=== PATIENT | female | born 1975 | race Caucasian/White ===

== ENCOUNTER 2016-08-15 02:00 | Inpatient (IN) | payer SELFPAY ==
--- NOTE | ~2016-08-15 | PA ---
Unit #: [id number] #: [id number] Patient: GLADIS HENDERSON [id number] [facility] [address] [place] [address] [id number] I MR#: [id number] NAME: GLADIS HENDERSON ROOM: P171 Age: 41 Sex: F Admission Date: 08/15/2016 : 1975 Date of Assessment: 08/15/2016 Attending Physician: Christine Palacios M.D. Admitting Physician: Christine Palacios M.D. Primary Care Physician: Primary Care Physician No PSYCHIATRIC ASSESSMENT DATE OF SERVICE 08/15/2016. IDENTIFYING DATA Ms. Henderson is a 41-year-old single white female, who is a resident of [place], [place] and was self-referred to the hospital on a voluntary basis. CHIEF COMPLAINT "For the past month, I have been having risky behaviors, syncope." HISTORY OF PRESENT ILLNESS Ms. Henderson is a 41-year-old white female, who reports that she has been having risky behavior for the last month and that she takes off in the middle of the night and disappears for days, and no one knows where she is at and reports that she has been getting in cars with people that she does not even know and that she has been having sex with people that she does not even know, reports racing thoughts and she has been depressed and crying for hours and that she thought about cutting herself today. The patient reports that she has not been manic or depressed for quite some time and reports that she now feels suicidal ideation with a plan to overdose on heroin. Her father committed suicide in 2016. The patient reports that she has not been sleeping well for the past few months and has history of heroin abuse and reports that her last use was 3 hours ago, and reports she snorts and smokes meth once every couple of weeks and reports that is 3 to 4 days, she uses methamphetamine, reports last use was yesterday. She also reports cannabis abuse and reports increasing depression, feelings of hopelessness and helplessness, and suicidal ideation, intent, and plan and as such, recommendation for inpatient level of care for safety and stabilization was made. SUBSTANCE ABUSE HISTORY The patient reports extensive history of substance abuse and dependence including alcohol, cannabis, cocaine, acid, opioids, methamphetamine, and benzodiazepines, and more recently opioids, methamphetamine, and cannabis have been her drug of choice. PAST PSYCHIATRIC HISTORY The patient has had history of inpatient chemical dependency treatment at [facility] as well as spring, and review of the medical records indicate currently she is not active in any treatment program, is not seeing a psychiatrist, and is not taking any psychotropic medications. Unit #: [id number] #: [id number] Patient: GLADIS HENDERSON PAST MEDICAL HISTORY The patient's medical history is significant for withdrawal seizures. ALLERGIES No known medication allergies. CURRENT MEDICATIONS None. PERSONAL AND SOCIAL HISTORY A 41-year-old white female, who reports that she is single, unemployed, and essentially homeless, and has poor social support system. MENTAL STATUS EXAMINATION Middle-aged white female, who was casually dressed with fair personal hygiene, appears to be in no acute distress or discomfort. She was awake and alert on interaction with intact orientation to time, place, and person. Her mood was anxious and depressed with a congruent affect. Her speech was slow and restricted in content. Her thought processes were disorganized with some looseness of associations and flight of ideas and suicidal ideations. Her insight and judgment remain significantly impaired. DIAGNOSTIC IMPRESSION Psychiatric: Major depressive disorder, recurrent, moderate, without psychotic features; opioid dependence, moderate; methamphetamine abuse, moderate; cannabis abuse, moderate. Medical: History of withdrawal seizures. Stressors: Moderate psychosocial stressors. TREATMENT PLAN 1. The patient has presented with a history of substance abuse and mood disorder and has been decompensating and will need inpatient hospitalization for detoxification, safety, and stabilization. We will start her back on her home medications and we will adjust the medications and monitor response. 2. Supportive therapy was provided to the patient. 3. Safe, structured, and nourishing environment will be provided. ESTIMATED LENGTH OF STAY 5 to 7 days. ABILITY TO HELP SELF Limited. WILLINGNESS TO HELP SELF The patient appears to be willing to help self. STRENGTHS 1. Communicative. 2. Cooperative. PROBLEMS 1. Chronic dysphoric symptoms. 2. Chronic chemical dependency. 3. Poor social support system. DISCHARGE CRITERIA This will be contingent upon the patient's ability to show resolution of Unit #: [id number] #: [id number] Patient: GLADIS HENDERSON her depression and anxiety and her ability to stay safe to herself, particularly after discharge from the hospital. Dictated by... Gianni Hameed/kristofer TD: 08/15/2016 06:52 JOB #: [id number] PSYCHIATRIC ASSESSMENT Page 1 of 1 X Christine Palacios MD PSYCHIATRIC ASSESSMENT
--- NOTE | ~2016-08-15 | HP ---
Unit #: [id number] #: [id number] Patient: GLADIS WAGGONER [id number] [facility] [address] [place] [address] [id number] I MR#: [id number] NAME: GLADIS WAGGONER ROOM: 71 Age: 41 Sex: F Admission Date: 08/15/2016 : 1975 Attending Physician: Christine Palacios M.D. Admitting Physician: Christine Palacios M.D. Primary Care Physician: Primary Care Physician No HISTORY AND PHYSICAL HISTORY OF PRESENT ILLNESS Gladis is a 41 year old admitted to [facility] because of her polysubstance abuse which includes methamphetamine and heroin. PAST MEDICAL HISTORY 1. Long history of illicit substance abuse. 2. History of withdrawal seizures. PAST SURGICAL HISTORY Nothing reported. ALLERGIES Sulfa, Darvocet. SOCIAL HISTORY Smokes one pack per day. Drinks alcohol on occasion. Admits to long history of illicit substance abuse. FAMILY HISTORY Medically noncontributory. REVIEW OF SYSTEMS CONSTITUTIONAL: No fever or chills. HEENT: Denies any sore throat, ear pain or runny nose. CARDIOVASCULAR: Denies chest pain, irregular heart rhythm or palpitations. CHEST: Denies shortness of breath or cough. No hemoptysis. GASTROINTESTINAL: Denies nausea, vomiting, diarrhea or chronic constipation. ENDOCRINE: Denies history of increased thirst or urination. No recent significant weight loss or gain. GENITOURINARY: Denies dysuria, frequency, or hematuria. SKIN: Denies any rashes. HEMATOLOGIC: Denies history of increased bleeding or bruising. MUSCULOSKELETAL: Denies any hot, swollen joints. No generalized muscle pain. NEUROLOGIC: Denies problems with vision or speech. No frequent, severe headaches. No numbness, tingling or weakness in any extremities. Denies loss of bladder or bowel control. CURRENT MEDICATIONS 1. Celexa 20 mg q. day. 2. Nicotine patch 14 mg q. day. 3. Desyrel p.r.n. Unit #: [id number] #: [id number] Patient: GLADIS WAGGONER 4. Milk of Magnesia p.r.n. 5. Maalox p.r.n. PHYSICAL EXAMINATION GENERAL: Alert, well nourished. No apparent distress. VITAL SIGNS: Blood pressure 100/46, heart rate 80, respirations 16, and temperature 98.6. WEIGHT: 130. HEIGHT: 5 feet 4 inches. SKIN: Warm and dry without rash or lesion. HEENT: Normocephalic. TMs not viewed. Oral and nasal passages clear. Conjunctivae clear. PERRLA. EOMs intact. NECK: Supple without lymphadenopathy or thyromegaly. HEART: Regular rate and rhythm without murmur. LUNGS: Clear. ABDOMEN: Soft, nontender. : Not done. EXTREMITIES: No evidence of cyanosis, clubbing or edema. Moves all without focal deficit. NEUROLOGICAL: Unable to complete extended exam. She does move all extremities without focal deficit. Hand mental measurements teacher is equal and gait is normal. IMPRESSION Psychiatric admission. RECOMMENDATIONS PSYCHIATRIC: Per psychiatrist. MEDICAL: I see no contraindication to participate in this facility's activities. MEDICAL PROGNOSIS Good. MEDICAL CONDITION Stable. Dictated by... Char Kang P.A.-C. for Gianni Marks/eliecer TD: 08/16/2016 07:26 JOB #: [id number] HISTORY AND PHYSICAL Page 1 of 1 X Char Kang X HISTORY AND PHYSICAL
--- NOTE | ~2016-08-15 | PN ---
Unit #: [id number] #: [id number] Patient: GLADIS WAGGONER [id number] [facility] [address] [place] [address] [id number] MR#: [id number] NAME: GLADIS WAGGONER ROOM: [facility] Age: 41 Sex: F Admission Date: 08/15/2016 : 1975 Attending Physician: Christine Palacios M.D. Admitting Physician: Christine Palacios M.D. Primary Care Physician: Primary Care Physician Flora CAMPBELL PROGRESS NOTES DATE 08/18/2016 DISCUSSION Ms. Waggoner is 41-year-old white female who was seen today and chart was reviewed and case was discussed with the staff. She has been anxious, withdrawn and rather seclusive to herself. Meanwhile, she has been cooperative with treatment recommendations and has been taking medications and tolerating them fairly well with no reported side effects. MENTAL STATUS EXAMINATION Middle-aged white female who was casually dressed with fair personal hygiene and appears to be in no acute distress or discomfort. She was awake and alert on interaction with intact orientation. Her mood was anxious with congruent affect. She denies any suicidal or homicidal ideation. Her insight and judgement remains slightly impaired. TREATMENT PLAN 1. Will continue on current medications and treatment protocol and will monitor her response to medications and make further adjustments as needed. 2. Will continue to follow up. Dictated by... Gianni Hameed/mack TD: 08/18/2016 17:41 JOB #: [id number] Unit #: [id number] #: [id number] Patient: GLADIS WAGGONER PROGRESS NOTES Page 1 of 1 X Christine Palacios MD X PROGRESS NOTE
--- NOTE | ~2016-08-15 | PN ---
Unit #: [id number] #: [id number] Patient: GLADIS WAGGONER [id number] [facility] [address] [place] [address] [id number] I MR#: [id number] NAME: GLADIS WAGGONER ROOM: [facility] Age: 41 Sex: F Admission Date: 08/15/2016 : 1975 Attending Physician: Christine Palacios M.D. Admitting Physician: Christine Palacios M.D. Primary Care Physician: Primary Care Physician Flora CAMPBELL PROGRESS NOTES DATE 08/16/2016 DISCUSSION Ms. Waggoner is a 41-year-old white female who was seen today and chart was reviewed, and case was discussed with the staff. She has been anxious, withdrawn, depressed, and seclusive to herself. ; however, she has been taking medications and tolerating them fairly well with no reported side effects. MENTAL STATUS EXAMINATION Middle-aged white female, who was casually dressed with fair personal hygiene, appears to be in slight distress or discomfort. She was awake and alert on interaction with intact orientation. Her mood was anxious with a congruent affect. She reports having suicidal ideations, but denies having homicidal ideations. Her insight and judgment remain slightly impaired. TREATMENT PLAN 1. We will continue on current medications and treatment protocol. We will monitor her response to medications and make further adjustments as needed. 2. We will continue to follow up. Dictated by... Gianni Hameed/modl TD: 08/16/2016 19:08 JOB #: [id number] Unit #: [id number] #: [id number] Patient: GLADIS WAGGONER PROGRESS NOTES Page 1 of 1 X Christine Palacios MD PROGRESS NOTE
--- NOTE | ~2016-08-15 | DS ---
Unit #: [id number] #: [id number] [facility]: [facility]ENDERSON [id number] [facility] [place] [address] [id number] I MR#: [id number] NAME: GLADIS HENDERSON ROOM: [facility] Age: 41 Sex: F Admission Date: 08/15/2016 : 1975 Discharge Date: 08/19/2016 Attending Physician: Christine Palacios M.D. Primary Care Physician: Primary Care Physician No DISCHARGE SUMMARY IDENTIFYING DATA Ms. Henderson is a 41-year-old single white female who is a resident of [place], [place] and was self-referred to the hospital on a voluntary basis. DISCHARGE DIAGNOSES Psychiatric: Major depressive disorder, recurrent, moderate, without psychotic features; opioid dependence, moderate; methamphetamine abuse, moderate; cannabis abuse, moderate. Medical: History of withdrawal seizures. Stressors: Mild psychosocial stressors. HISTORY OF PRESENT ILLNESS Please see initial psychiatric evaluation for details. PAST PSYCHIATRIC HISTORY Please see initial psychiatric evaluation for details. PAST MEDICAL HISTORY Please see initial psychiatric evaluation for details. HOSPITAL COURSE The [facility] and was oriented to the hospital environment. Routine p.r.n. medications were initiated, and she was started on the detox protocol and was also started on Celexa to help her with depression. She was initially seen to be withdrawn, anxious, and seclusive to herself. However, she was able to show a slow and therapeutic response to the medications and was able to come out of the detox without any complications and was willing to continue treatment on an outpatient basis. She was denying any suicidal ideations, intent, or plan and was not seen to be a danger to self or anyone else, and as such, it was decided that she will be discharged home and will continue treatment on an outpatient basis. DISCHARGE MEDICATIONS Celexa 20 mg a day for depression. DISCHARGE CONDITION Stable. PROGNOSIS Fair. Unit #: [id number] #: [id number] Patient: GLADIS HENDERSON Dictated by... Christine Palacios M.D. IAA/ninal TD: 08/19/2016 07:14 JOB #: [id number] DISCHARGE SUMMARY Page 1 of 1 X Christine Palacios MD DISCHARGE SUMMARY
--- NOTE | ~2016-08-15 | PN ---
Unit #: [id number] #: [id number] Patient: GLADIS WAGGONER [id number] [facility] [address] [place] [address] [id number] MR#: [id number] NAME: GLADIS WAGGONER ROOM: [facility] Age: 41 Sex: F Admission Date: 08/15/2016 : 1975 Attending Physician: Christine Palacios M.D. Admitting Physician: Christine Palacios M.D. Primary Care Physician: Primary Care Physician Flora CAMPBELL PROGRESS NOTES DATE 08/17/2016 DISCUSSION Ms. Waggoner is a 41-year-old white female who was seen today and chart was reviewed and case was discussed with the staff. She remains anxious, withdrawn, depressed and seclusive to herself. Meanwhile, she has been cooperative with treatment recommendations as she has been taking the medications and tolerating them fairly well with no reported side effects. MENTAL STATUS EXAMINATION Middle-aged white female who was casually dressed with fair personal hygiene, appears to be in no acute distress or discomfort. She was awake and alert on interaction with intact orientation. Her mood was anxious and depressed with congruent affect. She denies any suicidal or homicidal ideations. Her insight and judgement remains slightly impaired. TREATMENT PLAN We will continue her on her current medications and treatment protocol. We will monitor her response to the medication and make further adjustments as needed. Dictated by... Gianni Hameed/best TD: 08/17/2016 23:53 JOB #: [id number] Unit #: [id number] #: [id number] Patient: GLADIS WAGGONER PROGRESS NOTES Page 1 of 1 X Christine Palacios MD PROGRESS NOTE
[2016-08-15 09:37] LABS: BASOPHIL% 0.5 % (0-2.5); EOSINOPHIL# 0.3 X10e3 (0-0.7); EOSINOPHIL% 4.7 % (0.0-7.0); HEMATOCRIT 36.2 % (35.0-45.0); HEMOGLOBIN 12.1 gm/dL (12.0-16.0); LYMPHOCYTE# 2.7 X10e3 (1.0-3.5); LYMPHOCYTE% 37.9 % (17.0-45.0); MEAN CELL VOLUME 89.8 FL (83-96); MEAN CORPUSCULAR HGB CONC 33.4 g/dL (30-36); MEAN PLATELET VOLUME 7.9 FL (6.5-11.5); MONOCYTE# 0.8 X10e3 (0-1.0); MONOCYTE% 11.1 % (3.0-12.0); NEUTROPHIL# 3.3 X10e3 (1.5-7.1); NEUTROPHIL% 45.8 % (40-75); PLATELET COUNT 362 X10e3 (140-420); RED BLOOD COUNT 4.03 X10e (3.90-5.30); RED CELL DISTRIBUTION WIDTH 15.3 % (11.0-15.5); WHITE BLOOD COUNT 7.1 X10e3 (4.0-10.5)
[2016-08-15 09:43] LABS: URINE APPEARANCE CLEAR; URINE BILIRUBIN NEG (NEG); URINE BLOOD 1+ (NEG); URINE COLOR YELLOW; URINE GLUCOSE NEG (NEG); URINE KETONE NEG (NEG); URINE LEUKOCYTE ESTERASE NEG (NEG); URINE NITRATE NEG (NEG); URINE PROTEIN NEG (NEG); URINE SPECIFIC GRAVITY 1.004 (1.003-1.035); URINE UROBILINOGEN 0.2 MG/DL (NEG)
[2016-08-15 09:47] LABS: DIFF IND NO
[2016-08-15 09:48] LABS: URBCS1 AUWI 0-2 /[HPF] (0-2); URINE BACTERIA AUWI NEG (NEGATIVE); URINE SQUAMOUS EPITHELIAL CELL NONE SEEN /[HPF]; UWBCS1 AUWI 0-2 (0-5)
[2016-08-15 09:55] LABS: AMPHETAMINE POS (NEG); BARBITURATES NEG (NEG); BENZODIAZEPINES NEG (NEG); COCAINE NEG (NEG); MARIJUANA POS (NEG); OPIATES NEG (NEG); TRICYCLIC ANTIDEPRESSANTS NEG (NEG); U METHADONE NEG (NEG)
[2016-08-15 09:57] LABS: BILIRUBIN,TOTAL 0.4 mg/dL (0.2-2.0); BUN/CREATININE RATIO 37.5; CALCIUM SERUM 9.2 mg/dL (8.4-10.2); CREATININE SERUM 0.4 mg/dL (0.6-1.4); GLOM FILT RATE Estimated 130.3 mL/min (>60); PROTEIN TOTAL SERUM 6.3 g/dL (6.0-8.3)
== END 2016-08-19 09:07 | DRG 881 ==
LOC: P1E 04:24
PROVIDERS: Psychiatry & Neurology Psychiatry
PROC: HZ2ZZZZ Detoxification Services for Substance Abuse Treatment (ICD-10-PCS; principal; 2016-08-15)
DX: F32.9 Major depressive disorder, single episode, unspecified (principal); F11.20 Opioid dependence, uncomplicated; F15.10 Other stimulant abuse, uncomplicated; F12.10 Cannabis abuse, uncomplicated; F17.210 Nicotine dependence, cigarettes, uncomplicated; Z88.2 Allergy status to sulfonamides
CPT/HCPCS: 80053; 80307; 81003; 84703; 85025